=== PATIENT | male | born 1970 | race Caucasian/White ===

== ENCOUNTER → 2019-05-10 | Outpatient (CLI) | payer SELFPAY | PROVIDERS: Family Provider Nurse Practitioner Family; Visit Provider Podiatrist Foot & Ankle Surgery | DX: Z46.89 Encounter for fitting and adjustment of other specified devices (principal); M76.62 Achilles tendinitis, left leg | CPT/HCPCS: L3030 ==

== ENCOUNTER 2019-05-19 20:43 | Emergency (ER) | payer BC, SELFPAY ==
[2019-05-19 20:48] VITALS: BP 143/113; PULSE 95; RESP 16; TEMP 36.6; O2SAT 98; BMI 30.8
--- NOTE | 2019-05-19 21:08 | USCV_ITS ---
Brenda Mat Age: 48 Gender: M : 1970 Exam Date: 05/19/2019 21:26 Ordering Phys: Annalise Brock MD Technologist: Allan Mac [place] [facility] [place]: left leg pain swelling PROCEDURES: Venous duplex imaging was performed in only the left lower extremity. The following venous structures were evaluated: common femoral vein, profunda vein, proximal portion of the greater saphenous vein, superficial femoral vein, and the popliteal vein. In addition, the posterior tibial and peroneal trunk were evaluated. Serial compression, augmentation maneuvers, and spectral Doppler flow evaluation were performed. FINDINGS: DVT noted in left peroneal vein. All other vessels imaged appear free of thrombus at this time. CONCLUSIONS DVT left peroneal vein. Remaining vessels are patent. Trev Pablo MD (Electronically Signed) Final Date: 20 May 2019 09:00 S
[2019-05-19 21:29] LABS: Basophils # 0.1 10^3/uL (0.0-0.1); Basophils % 0.9 %; Eosinophils # 1.2 10^3/uL (0.0-0.8); Eosinophils % 13.4 %; Hematocrit 45.2 % (42.0-52.0); Hemoglobin 14.3 g/dL (11.7-16.6); Lymphocytes # 1.9 10^3/uL (0.8-4.8); Lymphocytes % 21.2 %; Mean Corpuscular HGB Conc 31.6 g/dL (30.0-36.0); Mean Corpuscular Hemoglobin 31.5 pg (28.0-34.0); Mean Corpuscular Volume 99.6 fL (80-94); Mean Platelet Volume 10.5 fL (7.4-10.4); Monocytes # 0.8 10^3/uL (0.2-0.9); Monocytes % 8.8 %; Neutrophils # 4.9 10^3/uL (1.8-7.7); Neutrophils % 55.5 %; Nucleated Red Blood Cells % 0 %; Platelet Count 270 10^3/cmm (130-400); Red Blood Count 4.54 10^6/uL (4.1-5.3); Red Cell Distribution Width 12.3 % (12.1-15.1); White Blood Count 8.8 10^3/uL (4.0-10.0)
[2019-05-19 23:27] VITALS: BP 178/111; O2SAT 93
--- NOTE | 2019-05-19 23:35 | ED_ITS ---
Entered by Rita Vargas, acting as scribe for Annalise Brock MD May 19, 2019 20:43 HPI - Extremity Problem General: Chief complaint: Extremity Problem,Nontraumatic Stated complaint: L LEG PAIN Time Seen by Provider: 05/19/19 23:34 Source: patient Limitations: no limitations History of Present Illness: HPI Narrative: 48 y/o male presents to the ED with codmplaint of left lower extremity pain. Pt sates he has been in a cast for many weeks for foot sx. He has had swelling and tenderness. Complaint: extremity pain and extremity swelling Onset (ago): hour(s) Pain Consistency: constant Location: left and lower extremity Quality: aching Associated symptoms: Deny chest pain, fever(s) or rash Review of Systems Const: Denies: fever or chills Eyes: Denies: change in vision ENMT: Denies: throat pain or mouth pain Card: Denies: chest pain Resp: Denies: shortness of breath GI: Denies: abdominal pain, nausea, vomiting or diarrhea Musc: Denies: back pain or joint pain Skin/Breast: Reports: skin tenderness and skin swelling; Denies: rash Neuro: Denies: headache or behavioral changes Psych: Denies: depression Endo: Denies: excessive urination Praveen/Lymph: Denies: easy bruising All/Imm: Denies: hives PFSH ED PFSH: Statuses (acute, chronic, etc) shown below reflect problem list status as previously entered and may not be historically accurate Social History Smoking and tobacco status: never smoked Physical Exam Const: COMMON NORMALS: no apparent distress, oriented x3 and healthy appearing HENMT: COMMON NORMALS: normocephalic and external nose normal HEAD & SCALP: normocephalic NOSE: external nose normal Eye: COMMON NORMALS: PERRL PUPIL: Yes PERRL Neck/C-Spine: COMMON NORMALS: full ROM and no lymphadenopathy Chest: COMMONS NORMALS: inspection of chest normal Resp: COMMON NORMALS: normal respiratory effort, no use of accessory muscles and clear to auscultation bilaterally AUSCULTATION: clear to auscultation bilaterally Cardio: COMMON NORMALS: regular rate and regular rhythm RATE: regular rate RHYTHM: regular rhythm GI: COMMON NORMALS: normal to inspection, nondistended, normoactive bowel sounds, soft to palpation, non-tender and no masses PALPATION: Yes soft Back/Pelvis: THORACIC SPINE/UPPER BACK: Yes normal to inspection Extremity: GENERAL: Yes calf tenderness (left) LEFT LOWER EXTREMITY: Yes lower leg Neuro: COMMON NORMALS: oriented x3 Psych: COMMON NORMALS: mental status grossly normal and cooperative Skin: GENERAL SKIN EXAM: erythema Course Vital Signs: Vital signs: Vital Signs Temperature 97.9 F 05/19/19 20:48 Pulse Rate 95 05/19/19 20:48 Respiratory Rate 16 05/19/19 20:48 Blood Pressure 178/111 05/19/19 23:27 Pulse Oximetry 93 05/19/19 23:27 MDM - Extremity (Nontraumatic) MDM Narrative: Medical decision making narrative: Patient presents here with left leg swelling and had a DVT shown on ultrasound. Patient has no signs of pulmonary embolism and has no chest pain. We will start him on Eliquis and he is to follow-up with his primary care doctor in 3 to 5 days. He is return if any worsening. Lab Data: Labs: Lab Results 05/19/19 Range/Units 21:12 WBC 8.8 (4.0-10.0) 10^3/ uL RBC 4.54 (4.1-5.3) 10^6/u L Hgb 14.3 (11.7-16.6) g/dL Hct 45.2 (42.0-52.0) % MCV 99.6 H (80-94) fL MCH 31.5 (28.0-34.0) pg MCHC 31.6 (30.0-36.0) g/dL RDW 12.3 (12.1-15.1) % Plt Count 270 (130-400) 10^3/c mm MPV 10.5 H (7.4-10.4) fL Neut % (Auto) 55.5 % Lymph % (Auto) 21.2 % Clinch % (Auto) 8.8 % Eos % (Auto) 13.4 % Baso % (Auto) 0.9 % Neut # (Auto) 4.9 (1.8-7.7) 10^3/u L Lymph # (Auto) 1.9 (0.8-4.8) 10^3/u L Clinch # (Auto) 0.8 (0.2-0.9) 10^3/u L Eos # (Auto) 1.2 H (0.0-0.8) 10^3/u L Baso # (Auto) 0.1 (0.0-0.1) 10^3/u L Nucleated RBC % (a uto) 0 % Nucleated RBCs # 0.0 /100WBC Discharge Plan Discharge Patient Disposition: Home Health Service Clinical Impression: Deep vein thrombosis of lower extremity Qualifiers: Affected thrombotic vein of extremity: peroneal Chronicity: acute Laterality: left Qualified Code(s): I82.452 - Acute embolism and thrombosis of left peroneal vein Condition: Stable Prescriptions: New Eliquis 5 mg (74 tabs) tablets,dose pack See Rx Instructions .ROUTE .COMPLEX Qty: 74 RF: 0 Discharge Orders: Discharge Order (Routine); Ordered 05/19/19 Ordered By: Annalise Brock Referrals: Amna Arrington FNP [Primary Care Provider] - Discharge Diet: Advance as tolerated Discharge Activity: Resume usual activity Patient Instructions: Deep Venous Thrombosis (ED) Discharge Date/Time: 05/19/19 23:55 Coding Level of Care Code ED Furniture And Bedding Inspector for Chg Fwd Exam Problem Focused The documentation recorded by the Sam garcia Ashley, accurately reflects the service I personally performed and the decisions made by Delmy wing Korby, MD May 19, 2019 20:43
[2019-05-19 23:54] VITALS: BP 178/111; PULSE 101; O2SAT 91
== END 2019-05-19 23:55 | disposition home health service (06) ==
PROVIDERS: Emergency Provider Emergency Medicine; Family Provider Nurse Practitioner Family; PCP Nurse Practitioner Family
DX: I82.452 Acute embolism and thrombosis of left peroneal vein (principal)
CPT/HCPCS: 36415; 85025; 93971; 99281

== ENCOUNTER → 2019-05-25 13:41 | Outpatient (BNVA) | payer BC, SELFPAY | PROVIDERS: Family Provider Nurse Practitioner Family; PCP Nurse Practitioner Family; Visit Provider Nurse Practitioner Family | DX: R74.8 Abnormal levels of other serum enzymes (principal); Z09 Encounter for follow-up examination after completed treatment for conditions other than malignant neoplasm; I82.452 Acute embolism and thrombosis of left peroneal vein | CPT/HCPCS: 80076 ==

== ENCOUNTER → 2019-10-17 14:30 | Outpatient (BNVA) | payer BC, SELFPAY | PROVIDERS: Family Provider Nurse Practitioner Family; PCP Nurse Practitioner Family; Visit Provider Podiatrist Foot & Ankle Surgery | DX: G57.62 Lesion of plantar nerve, left lower limb (principal) | CPT/HCPCS: 73630 ==

== ENCOUNTER 2019-11-04 10:04 | Outpatient (CLI) | payer BC, SELFPAY ==
--- NOTE | 2019-11-04 10:09 | US_ITS ---
WS: [id number] ULTRASOUND SOFT TISSUES LEFT foot. HISTORY: MCFARLANE'S NEUROMA/LESION OF PLANTAR NERVE, LEFT LOWER LIMB COMPARISON: None available. TECHNIQUE: 2-D and color Doppler imaging is submitted. Between the third and fourth metatarsal heads is an irregular shaped hypoechoic mass measuring 4 x 5 x 5 mm with central vascularity. Suspicious for Mcfarlane's neuroma. No additional abnormality. No fluid collections. US/US soft tissue/extremity [id number] IMPRESSION: Suspicious for 5 mm Mcfarlane's neuroma between the third and fourth metatarsal he ads.
== END 2019-11-04 10:05 | disposition home or self-care (01) ==
LOC: RAD 10:06
PROVIDERS: PCP Nurse Practitioner Family; Visit Provider Podiatrist Foot & Ankle Surgery
DX: G57.62 Lesion of plantar nerve, left lower limb (principal)
CPT/HCPCS: 76882

== ENCOUNTER 2019-11-18 10:45 | Outpatient (CLI) | payer BC, SELFPAY ==
--- NOTE | 2019-11-18 10:55 | USCV_ITS ---
Mat Gutierrez Age: 49 Gender: M : 1970 Exam Date: 11/18/2019 11:08 Ordering Phys: Amna Arrington Technologist: Kehinde Sanchez [place]am [place] [facility] [place]: PROCEDURES: Venous duplex imaging was performed in only the left lower extremity. The following venous structures were evaluated: common femoral vein, profunda vein, proximal portion of the greater saphenous vein, superficial femoral vein, and the popliteal vein. In addition, the posterior tibial and peroneal trunk were evaluated. Serial compression, augmentation maneuvers, and spectral Doppler flow evaluation were performed. FINDINGS: Normal 2-D Doppler and augmentation and compressibility throughout the lower extremity venous structures. Additional imaging through the proximal calf veins also reveals no thrombus. Limited evaluation of the greater saphenous vein is patent with no thrombus.. CONCLUSIONS No evidence of left lower extremity DVT. Trev Pablo MD (Electronically Signed) Final Date: 23 November 2019 11:02 S
== END 2019-11-18 10:46 | disposition home or self-care (01) ==
PROVIDERS: PCP Nurse Practitioner Family; Visit Provider Nurse Practitioner Family
DX: I82.402 Acute embolism and thrombosis of unspecified deep veins of left lower extremity (principal)
CPT/HCPCS: 93971

== ENCOUNTER 2020-01-23 15:22 | Outpatient (CLI) | payer BC, SELFPAY ==
--- NOTE | 2020-01-23 15:27 | XR_ITS ---
WS: [id number] EXAM: RIGHT KNEE: 3 VIEWS DATE OF EXAMINATION: 01/23/2020, 1604 hour COMPARISON: None. HISTORY: Patient is 49 years old with fall and twisting injury while pulling wire yesterday. Complaining of p ain. FINDINGS: Bone density is normal appearance. There are slight changes of arthritis in the knee. No fracture or dislocation. No joint effusion demonstrated. Extra-articular soft tissues are unremarkable. XR/XR knee RT 3V* [id number] IMPRESSION: No acute bony abnormality.
== END 2020-01-23 15:23 | disposition home or self-care (01) ==
LOC: RAD 15:25
PROVIDERS: PCP Nurse Practitioner Family; Visit Provider Nurse Practitioner Family
DX: S86.911A Strain of unspecified muscle(s) and tendon(s) at lower leg level, right leg, initial encounter (principal); X58.XXXA Exposure to other specified factors, initial encounter
CPT/HCPCS: 73562

== ENCOUNTER 2020-02-16 13:19 | Outpatient (CLI) | payer BC, SELFPAY ==
--- NOTE | 2020-02-16 13:45 | MR_ITS ---
WS: [id number] MRI RIGHT KNEE NONCONTRAST TECHNIQUE: Axial PD, coronal PD fat sat, coronal PD, sagittal PD, and sagittal PD fat-sat images obta ined. CLINICAL INFORMATION: S86.970P Strain of unspecified muscle(s) and tendon(s) at... COMPARISON: None. FINDINGS: Distal quadriceps and patella tendons are intact. Normal ACL and PCL. Hypertrophic patella. Mild personnel security assistant dejuan thinning of the medial and lateral meniscus. Tiny tear involving the posterior horn medial menisc us extending to the articular surface. Normal lateral meniscus. Edema in Hoffa's fat pad. Diffuse yessy ma compatible with contusion involving the posterior lateral tibial plateau with small nondisplaced f ractures involving the posterior lateral tibial plateau. No displaced fractures. No edema in the femo ral condyles. Hypertrophic patella. Normal medial collateral ligament. Lateral collateral ligament is normal. Soft tissue edema about the lateral aspect of the knee. Fibular head appears normal. MR/MR knee RT wo con* [id number] IMPRESSION: 1. Normal anterior and posterior cruciate ligaments. 2. Diffuse edema consistent with contusion and slightly comminuted medial tibi al plateau fracture posteriorly. Minimal depression. 3. Soft tissue edema about the lateral tibial plateau. Lateral collateral liga ment appears intact. 4. Suspected tiny horizontal tear involving the posterior horn medial meniscus extending to the articular surface.
== END 2020-02-16 13:20 | disposition home or self-care (01) ==
LOC: RADSHAW 13:21
PROVIDERS: PCP Nurse Practitioner Family; Visit Provider Nurse Practitioner Family
DX: S86.911A Strain of unspecified muscle(s) and tendon(s) at lower leg level, right leg, initial encounter (principal); S83.241A Other tear of medial meniscus, current injury, right knee, initial encounter; X58.XXXA Exposure to other specified factors, initial encounter; R60.0 Localized edema
CPT/HCPCS: 73721

== ENCOUNTER → 2020-03-13 14:46 | Outpatient (BNVA) | payer BC, SELFPAY | PROVIDERS: PCP Nurse Practitioner Family; Referring Provider Nurse Practitioner Family; Visit Provider Orthopaedic Surgery | DX: S82.141A Displaced bicondylar fracture of right tibia, initial encounter for closed fracture (principal); X58.XXXA Exposure to other specified factors, initial encounter | CPT/HCPCS: 73562 ==

== ENCOUNTER → 2020-05-22 11:23 | Outpatient (BNVA) | payer BC, SELFPAY | PROVIDERS: PCP Nurse Practitioner Family; Visit Provider Podiatrist Foot & Ankle Surgery | DX: M19.072 Primary osteoarthritis, left ankle and foot (principal); M19.071 Primary osteoarthritis, right ankle and foot; M79.672 Pain in left foot; M79.671 Pain in right foot; M77.32 Calcaneal spur, left foot; M77.31 Calcaneal spur, right foot | CPT/HCPCS: 73630 ==

== ENCOUNTER → 2020-07-04 09:39 | Outpatient (BNVA) | payer BC, SELFPAY | PROVIDERS: PCP Nurse Practitioner Family; Visit Provider Podiatrist Foot & Ankle Surgery | DX: M19.072 Primary osteoarthritis, left ankle and foot (principal); G57.62 Lesion of plantar nerve, left lower limb | CPT/HCPCS: 73630 ==

== ENCOUNTER → 2020-08-21 16:21 | Outpatient (BNVA) | payer BC, SELFPAY | PROVIDERS: PCP Nurse Practitioner Family; Visit Provider Nurse Practitioner Family | DX: R31.9 Hematuria, unspecified (principal); R30.9 Painful micturition, unspecified; N39.0 Urinary tract infection, site not specified | CPT/HCPCS: 81000; 87077; 87086; 87184 ==

== ENCOUNTER 2020-08-28 10:45 | Outpatient (CLI) | payer BC, SELFPAY ==
--- NOTE | 2020-08-28 11:15 | CT_ITS ---
WS: [id number] CT ABDOMEN AND PELVIS NONCONTRAST HISTORY: R10.9 - Unspecified abdominal pain TECHNIQUE: Imaging performed through the abdomen and pelvis. Coronal and sagittal reformats are submi tted. All CT scans at [facility] use at least one of these dose optimization techniques: automated exposure control; mA and/or kV adjustment per patient size (includes targeted exams where d ose is matched to clinical indication); or iterative reconstruction. DLP: 1126.7 mGycm COMPARISON: None available. Lower thorax: Lung bases are clear. Small hiatal hernia. Normal size heart. Mild increased amount of pericardial fat. Liver: Mild hepatomegaly. No bile duct dilatation or mass. Gallbladder: Normal gallbladder. Pancreas: Normal size and attenuation. Normal pancreatic duct. No pancreatitis or mass. Spleen: Normal. Adrenal glands: Normal. No mass. Right kidney: Mild perinephric stranding. 2 mm nonobstructing mid pelvic calcification. Left kidney: Mild perinephric stranding. Nonobstructing 2 mm calcification in the mid kidney. No hydr onephrosis. Aorta: Mild atherosclerosis abdominal aorta with no aneurysm. No free fluid, intraperitoneal air or significant lymphadenopathy. GI tract: Normal appendix. Mild diffuse constipation and fecal retention. There is no obstruction or diverticular disease. Abdominal wall: Very small fat-containing umbilical hernia. Pelvis: Minimally distended urinary bladder. Mild enlargement of the prostate gland. Prostate slightl y encroaches into the urinary bladder. Calcifications or prostate seed implants within the prostate. Osseous structures: Small area of osteonecrosis involving the superior RIGHT femoral head. CT/CT kidney stone [id number] IMPRESSION: 1. No renal obstruction. 2 mm nonobstructing renal calculi, bilateral. 2. Normal appendix. 3. Mild constipation. 4. Mild prostate gland enlargement. 5. Small focal area of RIGHT femoral head osteonecrosis.
== END 2020-08-28 10:46 | disposition home or self-care (01) ==
PROVIDERS: PCP Nurse Practitioner Family; Visit Provider Nurse Practitioner Family
DX: R10.9 Unspecified abdominal pain (principal); N20.0 Calculus of kidney; K59.00 Constipation, unspecified; N40.0 Benign prostatic hyperplasia without lower urinary tract symptoms
CPT/HCPCS: 74176

== ENCOUNTER → 2020-08-31 10:06 | Outpatient (BNVA) | payer BC, SELFPAY | PROVIDERS: PCP Nurse Practitioner Family; Visit Provider Nurse Practitioner Family | DX: N39.0 Urinary tract infection, site not specified (principal); R31.9 Hematuria, unspecified; N40.0 Benign prostatic hyperplasia without lower urinary tract symptoms; M87.9 Osteonecrosis, unspecified; I10 Essential (primary) hypertension | CPT/HCPCS: 81000; 87077; 87086; 87184; G0103 ==

== ENCOUNTER 2020-09-03 11:35 | Outpatient (CLI) | payer BC, SELFPAY ==
--- NOTE | 2020-09-03 12:00 | XR_ITS ---
WS: [id number] Exam: XR KUB [id number] Date/Time of Exam: 09/03/2020 11:53 AM Reason For Exam: N20.0 - Calculus of kidney No bowel obstruction or free air. 2 mm calcification superimposes the left kidney that could represen t a tiny renal stone. No other calcifications are noted in the region of the kidneys. Visualized orga n margins appear normal. Bony structures are intact. Fiduciary markers are noted in the lower central pelvis. XR/XR KUB [id number] IMPRESSION: 1. 2 mm calcification superimposing left kidney that may represent renal lithia sis. 2. No acute abdominal finding.
== END 2020-09-03 11:36 | disposition home or self-care (01) ==
LOC: RAD 11:38
PROVIDERS: PCP Nurse Practitioner Family; Visit Provider Urology
DX: N20.0 Calculus of kidney (principal)
CPT/HCPCS: 74018; 81003

== ENCOUNTER → 2020-09-12 10:32 | Outpatient (BNVA) | payer BC, SELFPAY | PROVIDERS: PCP Nurse Practitioner Family; Visit Provider Orthopaedic Surgery | DX: M16.11 Unilateral primary osteoarthritis, right hip (principal); M25.551 Pain in right hip | CPT/HCPCS: 73502 ==

== ENCOUNTER → 2020-10-02 13:02 | Outpatient (BNVA) | payer BC, SELFPAY | PROVIDERS: PCP Nurse Practitioner Family; Visit Provider Urology | DX: N39.0 Urinary tract infection, site not specified (principal); N40.1 Benign prostatic hyperplasia with lower urinary tract symptoms | CPT/HCPCS: 81003 ==

== ENCOUNTER 2020-10-22 10:30 | Outpatient (CLI) | payer BC, SELFPAY ==
--- NOTE | 2020-10-22 11:00 | US_ITS ---
WS: [id number] ULTRASOUND THYROID TECHNIQUE: Ultrasound of the thyroid. CLINICAL INFORMATION: R79.89 - Other specified abnormal findings of blood chemi... COMPARISON: None. FINDINGS: Thyroid: Right and left thyroid lobes are normal in size and echotexture. No thyroid nodules are pres ent. Right thyroid lobe: 5.4 cm x 1.5 cm x 2.2 cm Left thyroid lobe: 4.3 cm x 1.7 cm x 1.8 cm. Isthmus: 0.3 mm. Cervical lymphadenopathy: None. US/US thyroid [id number] IMPRESSION: 1. Both thyroid lobes are normal in size and echotexture. 2. No thyroid nodules are present.
== END 2020-10-22 10:31 | disposition home or self-care (01) ==
PROVIDERS: PCP Nurse Practitioner Family; Visit Provider Nurse Practitioner Family
DX: R79.89 Other specified abnormal findings of blood chemistry (principal)
CPT/HCPCS: 76536

== ENCOUNTER → 2020-11-05 08:20 | Outpatient (BNVA) | payer BC, SELFPAY | PROVIDERS: PCP Nurse Practitioner Family; Visit Provider Urology | DX: N20.9 Urinary calculus, unspecified (principal) | CPT/HCPCS: 80048; 81003; 82131; 82140; 82340; 82365; 82436; 82507; 82570; 83735; 83935; 84100; 84300; 84550; 88300 ==

== ENCOUNTER 2021-01-02 12:22 | Outpatient (CLI) | payer BC, SELFPAY ==
--- NOTE | 2021-01-02 12:30 | XR_ITS ---
WS: [id number] Exam: XR KUB [id number] Date/Time of Exam: 01/02/2021 12:29 PM Reason For Exam: UROLITHIASIS Comparison 09/03/2020. No bowel obstruction or free air. 2 mm calcification superimposes the left renal silhouette and may r epresent a tiny renal stone. Fiduciary markers noted in the lower central pelvis. Regional bony struc tures are intact. XR/XR KUB [id number] IMPRESSION: 1. No acute process identified. 2. 2 mm calcification superimposes the left kidney and may represent a tiny franklin al stone.
== END 2021-01-02 12:23 | disposition home or self-care (01) ==
LOC: RAD 12:25
PROVIDERS: PCP Nurse Practitioner Family; Visit Provider Urology
DX: N20.0 Calculus of kidney (principal); R97.20 Elevated prostate specific antigen [PSA]
CPT/HCPCS: 74018; 81003; 84153

== ENCOUNTER → 2022-01-03 08:46 | Outpatient (BNVA) | payer BC, SELFPAY | PROVIDERS: PCP Nurse Practitioner Family; Visit Provider Nurse Practitioner Family | DX: M87.051 Idiopathic aseptic necrosis of right femur (principal); R97.20 Elevated prostate specific antigen [PSA] | CPT/HCPCS: 80053; 80061; 83036; 83721; 84153 ==

== ENCOUNTER 2023-05-08 07:38 | Day surgery (SDC) | payer BC, SELFPAY ==
[2023-05-08 07:53] VITALS: BP 157/99; PULSE 87; RESP 18; TEMP 36.8; O2SAT 96; BMI 27.9
[2023-05-08] MEDS: sodium chloride 0.9% 1,000 ML 30 ML IV (07:58)
[2023-05-08 08:05] LABS: Glucose Point of Care 93 mg/dL (70-110)
--- NOTE | 2023-05-08 08:18 | ANES.PREANE2 ---
Pre-Anesthetic Assessment Height/Weight: Height 1.78 m Weight 88.451 kg Temp Pulse Resp BP Pulse Ox O2 Del Method 98.3 F 87 18 157/99 96 Room Air 05/08/23 07:53 05/08/23 07:53 05/08/23 07:53 05/08/23 07:53 05/08/23 07:53 05/08/23 07:53 Operation Date: 05/08/23 08:55 Proposed Procedures p Colonoscopy G0121,D64.9(Not Applicable) - Gray Davis MD Familial anesthetic complications: none Was Beta Becca taken within 24 hours: N/A Was Clonidine taken within 24 hours: N/A Last intake: Intake Last Liquid Date 05/07/23 Last Liquid Time 22:00 Last Solid Date 05/07/23 Last Solid Time 08:00 Social No alcohol and No tobacco Exam alert, oriented x 3, clear to auscultation bilaterally and regular rate & rhythm Airway Mallampati: Class IV Dentition: partials Pulmonary Sleep Apnea CV/HEM Coronary Artery Disease (CABG X 4 in june - able to achieve 4 METS), Deep Vein Thrombosis (occured after having had a cast on his lower extremity) and Hypertension Metabolic Diabetes Mellitus ( borderline ) and Hyperlipidemia Anesthetic Plan ASA status: 3 Anesthesia: MAC Risk of > 500 ml blood loss (7ml/kg in children): No Medications/Allergies Home Medications Medication Instructions Recorded Confirmed Last Taken Type cholecalciferol (vitamin D3) 250 250 mcg PO DAILY 09/03/20 05/06/23 05/05/23 History mcg (10,000 unit) capsule metformin 750 mg tablet,extended 750 mg PO DAILY 09/03/20 05/06/23 05/06/23 History release 24 hr zinc 50 mg tablet 50 mg PO DAILY 09/03/20 05/06/23 05/06/23 History vit B6-mag cit,ox-potassium cit 1 tab PO DAILY 01/02/21 05/06/23 05/06/23 History 3.75 mg-45 mg-45 mg-49.5 mg tablet ER (Theralith XR) DIM 400 mg PO DAILY 07/21/22 05/06/23 05/05/23 History Methylated B Complex 1 tab PO DAILY 07/21/22 05/06/23 05/06/23 History Methylated B12 1 tab PO DAILY 03/05/06/23 05/05/23 History lysine 1,000 mg tablet 1,000 mg PO DAILY 07/21/22 05/06/23 05/05/23 History magnesium 1 tab PO DAILY 07/21/22 05/06/23 05/05/23 History clopidogrel 75 mg tablet 75 mg PO DAILY 14 days #14 tabs 07/23/22 05/06/23 1 Week Ago Rx ~04/29/23 dapagliflozin propanediol 10 mg 10 mg PO DAILY 14 days #14 tabs 07/23/22 05/06/23 05/05/23 Rx tablet (Farxiga) losartan 25 mg tablet 25 mg PO DAILY 14 days #14 tabs 07/23/22 05/08/23 05/07/23 Rx aspirin 81 mg capsule 81 mg PO DAILY 05/06/23 05/06/23 1 Week Ago History ~04/29/23 metoprolol succinate 50 mg 100 mg PO DAILY 05/06/23 05/06/23 05/05/23 History tablet,extended release 24 hr montelukast 10 mg tablet 10 mg PO DAILY 05/06/23 05/06/23 05/05/23 History rosuvastatin 10 mg tablet 10 mg PO DAILY 05/06/23 05/06/23 05/05/23 History tamsulosin 0.4 mg capsule 0.4 mg PO BID 05/06/23 05/06/23 05/05/23 History Allergies Allergy/AdvReac Type Severity Reaction Status Date / Time No Known Allergies Allergy Verified 05/06/23 10:34 Current Medications Generic Name Dose Route Start Last Admin Trade Name Freq PRN Reason Stop Dose Admin Sodium Chloride 1,000 mls @ 30 mls/hr 05/08/23 07:45 05/08/23 07:58 Sodium Chloride 0.9% IV 05/09/23 07:44 30 mls/hr .Q24H ANDERSON Administration PFSH Anesthesia Medical History BPH loc w urin obs/LUTS DVT (deep venous thrombosis) Elevated liver enzymes Elevated PSA HTN (hypertension), benign Recurrent UTI Urolithiasis Surgical History History of quadruple bypass Hx of adenoidectomy Hx of hand surgery Hx of sinus surgery Family History Father , AT AGE 62 Clotting disorder Stroke Mother Stroke Hypertension Hyperlipidemia Sister Cancer Denies family history of Diabetes CAD (coronary artery disease) Dementia Chronic kidney disease (CKD) Lung disease Social History Smoking and tobacco/nicotine status: never used tobacco/nicotine Alcohol intake: never Substance/Drug Use: never Adopted: No Lives independently: Yes Household members: spouse, family and children Housing: House Marital status: service: No Current occupational status: employed Current occupation: [employer] employee Data Anesthesia Cardiac Studies: No Data to Display
--- NOTE | 2023-05-08 08:48 | P.HP_ITS ---
Same Day Surgery H&P Indication for Procedure/HPI DATE OF PROCEDURE: May 08, 2023 CHIEF COMPLAINT/INDICATIONFOR SURGICAL PROCEDURE: iron deficiency anemia PREOP DIAGNOSIS: iron deficiency anemia PLANNED PROCEDURE: Operation Date: 05/08/23 08:55 Proposed Procedures p Colonoscopy G0121,D64.9(Not Applicable) - Gray Davis MD Medications/Allergies* Home Medications Medication Instructions Recorded Confirmed Type cholecalciferol (vitamin D3) 250 250 mcg PO DAILY 09/03/20 05/06/23 History mcg (10,000 unit) capsule metformin 750 mg tablet,extended 750 mg PO DAILY 09/03/20 05/06/23 History release 24 hr zinc 50 mg tablet 50 mg PO DAILY 09/03/20 05/06/23 History vit B6-mag cit,ox-potassium cit 1 tab PO DAILY 01/02/21 05/06/23 History 3.75 mg-45 mg-45 mg-49.5 mg tablet ER (Theralith XR) DIM 400 mg PO DAILY 07/21/22 05/06/23 History Methylated B Complex 1 tab PO DAILY 07/21/22 05/06/23 History Methylated B12 1 tab PO DAILY 07/21/22 05/06/23 History lysine 1,000 mg tablet 1,000 mg PO DAILY 07/21/22 05/06/23 History magnesium 1 tab PO DAILY 07/21/22 05/06/23 History aspirin 81 mg capsule 81 mg PO DAILY 05/06/23 05/06/23 History metoprolol succinate 50 mg 100 mg PO DAILY 05/06/23 05/06/23 History tablet,extended release 24 hr montelukast 10 mg tablet 10 mg PO DAILY 05/06/23 05/06/23 History rosuvastatin 10 mg tablet 10 mg PO DAILY 05/06/23 05/06/23 History tamsulosin 0.4 mg capsule 0.4 mg PO BID 05/06/23 05/06/23 History Allergies/Adverse Reactions Allergy/AdvReac Type Severity Reaction Status Date / Time No Known Allergies Allergy Verified 05/06/23 10:34 Current Medications: Generic Name Dose Route Start Last Admin Trade Name Freq PRN Reason Stop Dose Admin Sodium Chloride 1,000 mls @ 30 mls/hr 05/08/23 07:45 05/08/23 07:58 Sodium Chloride 0.9% IV 05/09/23 07:44 30 mls/hr .Q24H ANDERSON Administration Pertinent History/Comorbid Conditions* Medical History (Updated 01/28/23 @ 10:16 by ALVARADO Headley) Elevated PSA Urolithiasis BPH loc w urin obs/LUTS Recurrent UTI DVT (deep venous thrombosis) Elevated liver enzymes HTN (hypertension), benign Surgical History (Updated 07/22/22 @ 09:23 by ALVARADO Headley) Hx of hand surgery Hx of sinus surgery Hx of adenoidectomy History of quadruple bypass Family History (Updated 05/23/22 @ 15:14 by Kiara Silver LPN) Father, AT AGE 62 Clotting disorder Father Hyperlipidemia Mother Cancer Sister Hypertension Mother Stroke Father Mother Denies family history of Diabetes CAD (coronary artery disease) Dementia Chronic kidney disease (CKD) Lung disease Social History Smoking and tobacco/nicotine status: never used tobacco/nicotine Alcohol intake: never Substance/Drug Use: never Adopted: No Lives independently: Yes Household members: spouse, family and children Housing: House Marital status: service: No Current occupational status: employed Current occupation: [employer] employee Pertinent Exam Findings alert, oriented x 3, clear to auscultation bilaterally and regular rate & rhythm Recommendations Surgery/Procedure today Coding Level of Care Code Acute Code for Chg Fwd
[2023-05-08 09:46] VITALS: BP 129/84; PULSE 71; RESP 18; TEMP 36.4; O2SAT 96
[2023-05-08 09:55] VITALS: BP 149/99; PULSE 74; TEMP 36.3; O2SAT 96
--- NOTE | 2023-05-08 10:20 | ANE.PACU2 ---
Inpatient post-anesthesia follow up: Airway intact: Yes Vital signs: Temperature 97.4 F Pulse Rate 74 Respiratory Rate 18 Blood Pressure 149/99 Pulse Oximetry 96 Oxygen Delivery Me thod Room Air Oxygen Flow Rate Fraction of Inspir ed Oxygen Hydration adequate: Yes Nausea and vomiting: No Pain level: 1 Mental status: Baseline
== END 2023-05-08 10:22 | disposition home or self-care (01) ==
PROVIDERS: PCP Nurse Practitioner Family; Visit Provider Surgery
PROC: 0DJD8ZZ Inspection of Lower Intestinal Tract, Via Natural or Artificial Opening Endoscopic (ICD-10-PCS; CPT 45378; principal; 2023-05-08 08:55)
PROC: 0DJ08ZZ Inspection of Upper Intestinal Tract, Via Natural or Artificial Opening Endoscopic (ICD-10-PCS; CPT 43235; 2023-05-08 08:55)
DX: D50.9 Iron deficiency anemia, unspecified (principal); D12.0 Benign neoplasm of cecum; K29.70 Gastritis, unspecified, without bleeding; N40.1 Benign prostatic hyperplasia with lower urinary tract symptoms; N13.8 Other obstructive and reflux uropathy; Z86.718 Personal history of other venous thrombosis and embolism; I10 Essential (primary) hypertension; G47.30 Sleep apnea, unspecified; I25.10 Atherosclerotic heart disease of native coronary artery without angina pectoris; Z95.1 Presence of aortocoronary bypass graft; E11.9 Type 2 diabetes mellitus without complications; Z79.84 Long term (current) use of oral hypoglycemic drugs; Z79.82 Long term (current) use of aspirin
CPT/HCPCS: 36416; 45385; 82962; 88305; 88312; J2704; J7030

== ENCOUNTER → 2023-08-07 11:24 | Outpatient (BNVA) | payer BC, SELFPAY | PROVIDERS: PCP Nurse Practitioner Family; Visit Provider Nurse Practitioner Family | DX: R31.9 Hematuria, unspecified (principal); E11.9 Type 2 diabetes mellitus without complications; N40.1 Benign prostatic hyperplasia with lower urinary tract symptoms; N39.0 Urinary tract infection, site not specified; E78.2 Mixed hyperlipidemia | CPT/HCPCS: 81000; 82962 ==

== ENCOUNTER → 2024-02-16 16:04 | Outpatient (BNVA) | payer BC, SELFPAY | PROVIDERS: PCP Nurse Practitioner Family; Visit Provider Nurse Practitioner Family | DX: Z79.899 Other long term (current) drug therapy (principal); I10 Essential (primary) hypertension; E11.9 Type 2 diabetes mellitus without complications | CPT/HCPCS: 80053; 83036; 85025 ==

== ENCOUNTER → 2025-03-10 08:47 | Outpatient (BNVA) | payer OTHER, SELFPAY | PROVIDERS: PCP Nurse Practitioner Family; Visit Provider Nurse Practitioner Family | DX: I10 Essential (primary) hypertension (principal); E55.9 Vitamin D deficiency, unspecified; I25.10 Atherosclerotic heart disease of native coronary artery without angina pectoris; R53.83 Other fatigue; E11.9 Type 2 diabetes mellitus without complications | CPT/HCPCS: 80053; 80061; 82043; 82306; 83036; 85025 ==